=== PATIENT | female | born 1980 | race Caucasian/White ===

== ENCOUNTER 2022-09-05 19:17 | Emergency (ER) | payer OTHER ==
[~2022-09-05] VITALS: Ht 162.6 cm; Wt 90.7 kg
[2022-09-05 19:25] VITALS: BP 165/93
--- NOTE | 2022-09-05 19:32 | NUR ---
PT W/C ASSISTED TO BED #3
[2022-09-05 19:33] VITALS: BP 165/93
--- NOTE | 2022-09-05 19:45 | NUR ---
42 Y/O f PRESENTS WITH BILATERAL DULL CHEST PAIN 10/10 RADIASTING FROM L HEAD TO L NECK AND L ARM X3PM. UPON ASSESSMENT PT WAS CRYING DUE TO THE PAIN. PT IS [id number], SKIN INTACT, AMBULATORY BUT UNSTEADY DUE TO PAIN AND ASSISTED IN WHEELCAHIR TO BED #4. PMH-UNOBTAINABLE DUE TO PAIN NKA
[2022-09-05] MEDS ORDERED: KETOROLAC 30 MG/ML VIAL IM ONE (19:50)
--- NOTE | 2022-09-05 19:53 | NUR ---
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
--- NOTE | 2022-09-05 20:15 | NUR ---
AT BEDSIDE, BUT SWITCHED OUT WITH SON, SON HAS BEEN AT BEDSIDE SINCE
[2022-09-05 20:16] LABS: BASOPHILS % (AUTO) 0.3 % (0.0-2.0); EOSINOPHILS # (AUTO) 0.3 K/uL (0-0.4); EOSINOPHILS % (AUTO) 3.5 % (0.0-4.0); HEMATOCRIT 36.4 % (36-48); HEMOGLOBIN 12.5 g/dL (12.0-16.0); LYMPHOCYTES # (AUTO) 2.7 K/uL (2.5-16.5); LYMPHOCYTES % (AUTO) 28.7 % (20.5-51.1); MEAN CORPUSCULAR HEMOGLOBIN 29 pg (27-31); MEAN CORPUSCULAR HGB CONC 35 g/dL (33-37); MEAN CORPUSCULAR VOLUME 82.8 fL (80-94); MONOCYTES # (AUTO) 0.5 K/uL (0.8-1.0); MONOCYTES % (AUTO) 5.8 % (1.7-9.3); NEUTROPHILS # (AUTO) 5.7 K/uL (1.8-7.7); NEUTROPHILS % (AUTO) 61.7 % (42.2-75.2); PLATELET COUNT (AUTO) 268 K/uL (140-450); RED BLOOD CELL COUNT(AUTO) 4.39 MIL/uL (4.20-5.40); RED CELL DISTRIBUTION WIDTH 13.9 % (11.6-13.7); WHITE BLOOD COUNT (AUTO) 9.2 K/uL (4.8-10.8)
[2022-09-05 20:44] LABS: ALBUMIN 3.6 g/dL (3.4-5.0); ANION GAP 10.5 (8-16); ASPARTATE AMINOTRANSFERASE 32 U/L (15-37); CHLORIDE 103 mmol/L (98-107); CREATININE 0.8 mg/dL (0.6-1.3); GFR ARICAN-AMERICAN 100 mL/min (>90); POTASSIUM 3.5 mmol/L (3.5-5.1); SODIUM SERUM 139 mmol/L (136-145); TOTAL BILIRUBIN 0.2 mg/dL (0.0-1.0); UREA NITROGEN, BLOOD 13 mg/dL (7-18)
[2022-09-05 20:54] LABS: GLUCOSE 151 mg/dL (74-106)
[2022-09-05] MEDS ORDERED: FAMO-90 PO (22:11)
[2022-09-05] MEDS ORDERED: IBUP-2213 PO (22:11)
--- NOTE | 2022-09-05 22:20 | NUR ---
Patient discharged with v/s stable. Written and verbal after care instructions given and explained. Patient alert, oriented and verbalized understanding of instructions. Ambulatory with steady gait. All questions addressed prior to discharge. ID band removed. Patient advised to follow up with PMD. Rx of PEPCID AND IBUPROFEN given. Opportunity to ask questions provided and answered.
== END 2022-09-05 22:20 | disposition home or self-care (01) ==
LOC: MED 19:17
DX: R07.89 Other chest pain (principal); Z79.899 Other long term (current) drug therapy; Z79.1 Long term (current) use of non-steroidal anti-inflammatories (NSAID)
CPT/HCPCS: 36415; 71045; 80053; 84484; 85025; 93005; 96372; 99285; J1885

== ENCOUNTER 2023-05-25 15:33 | Emergency (ER) | payer OTHER ==
[~2023-05-25] VITALS: Ht 162.6 cm; Wt 90.7 kg
[~2023-05-25 15:33] MED LIST: FAMO-90 PO; IBUP-2213 PO
[2023-05-25 15:35] VITALS: BP 127/83; PULSE 64; RESP 20; TEMP 97.8; O2SAT 98
[2023-05-25] MEDS ORDERED: LIDOCAINE MPF 1% 10 MG/ML VIAL INJ ONE ×2 (16:30→17:50)
== END 2023-05-25 17:58 | disposition home or self-care (01) ==
LOC: MED 15:33
DX: S61.011A Laceration without foreign body of right thumb without damage to nail, initial encounter (principal); S61.212A Laceration without foreign body of right middle finger without damage to nail, initial encounter; W26.8XXA Contact with other sharp object(s), not elsewhere classified, initial encounter; Y93.89 Activity, other specified; Y92.89 Other specified places as the place of occurrence of the external cause; Y99.8 Other external cause status
CPT/HCPCS: 12002; 73130; 90471; 90715; 99283; J2001